=== PATIENT | male | born 1955 | race Caucasian/White ===

== ENCOUNTER 2021-07-30 06:30 | Day surgery (SDC) | payer OTHER ==
[2021-07-30] MEDS ORDERED: Sodium Chloride 0.9% 1,000 ML IV SCH (07:00)
[2021-07-30] MEDS ORDERED: fentaNYL 100 MCG/2 ML SDV ONE (07:25)
[2021-07-30] MEDS ORDERED: Propofol 200 MG/20 ML SDV ONE (07:25)
[2021-07-30] MEDS ORDERED: Midazolam 1 MG/ML 2 ML SDV ONE (07:25)
--- NOTE | 2021-07-30 10:16 | OR ---
DATE OF PROCEDURE: 07/30/2021 SURGEON: Abisai Salgado MD PROCEDURE: Colonoscopy. FINDINGS: Ascending colon polyp, approximately 5 mm, completely removed using cold biopsy forceps. COMPLICATIONS: None. TIE TAMPER: None. ANESTHESIA: MAC. PREOPERATIVE DIAGNOSIS: Screening colonoscopy. POSTOPERATIVE DIAGNOSIS: Screening colonoscopy. RISKS: Risks, benefits, alternatives, and limitations including, but not limited to infection, bleeding, perforation, false positives and false negatives were explained to the patient and he wished to proceed. PROCEDURE IN DETAIL: The patient was placed in left lateral decubitus position. Digital rectal exam was performed without abnormality. Scope was introduced and advanced atraumatically to the ileocecal valve. A photo was taken of the appendiceal orifice. At the junction of cecum and appendiceal orifice, a small, less than 5 mm polyp was identified and completely removed using cold biopsy forceps. Scope was brought back to the remainder of the colon. No other polyps were noted. No old or new blood. No diverticulosis. No colitis. No other abnormalities were noted. No abnormalities on digital rectal exam. Greater than 8 minutes was spent removing the scope. Prep was acceptable, approximately 90% of the luminal surface could be seen. The patient tolerated the procedure well. Abisai Salgado MD /[id number]
== END 2021-07-30 09:07 | disposition home or self-care (01) ==
LOC: JP.SDS 06:30
PROVIDERS: ATTEND Surgery
DX: Z12.11 Encounter for screening for malignant neoplasm of colon (principal); K51.40 Inflammatory polyps of colon without complications; I25.10 Atherosclerotic heart disease of native coronary artery without angina pectoris; I10 Essential (primary) hypertension; E11.9 Type 2 diabetes mellitus without complications; F17.210 Nicotine dependence, cigarettes, uncomplicated
CPT/HCPCS: 88305; J2250; J2704; J3010; J7030

== ENCOUNTER 2022-06-11 09:52 | Emergency (ER) | payer OTHER ==
[2022-06-11] MEDS ORDERED: Diphtheria,Pertussis(Acell),Tetanus Vaccine 0.5 ML Syringe IM ONE (10:41)
== END 2022-06-11 11:05 | disposition other institution (70) ==
LOC: JP.ED 09:52
DX: T15.02XA Foreign body in cornea, left eye, initial encounter (principal); S70.352A Superficial foreign body, left thigh, initial encounter; I25.10 Atherosclerotic heart disease of native coronary artery without angina pectoris; E78.00 Pure hypercholesterolemia, unspecified; I10 Essential (primary) hypertension; I25.2 Old myocardial infarction; E11.9 Type 2 diabetes mellitus without complications; Z95.5 Presence of coronary angioplasty implant and graft; Z79.02 Long term (current) use of antithrombotics/antiplatelets; Z79.899 Other long term (current) drug therapy; Z79.4 Long term (current) use of insulin; Z23 Encounter for immunization; W45.8XXA Other foreign body or object entering through skin, initial encounter
CPT/HCPCS: 90471; 99281; 99283-25